=== PATIENT | male | born 1970 | race Caucasian/White ===

== ENCOUNTER 2017-10-14 15:57 | Emergency (ER) | payer SELFPAY ==
[~2017-10-14] VITALS: Ht 175.3 cm; Wt 83.0 kg
[2017-10-14 16:19] VITALS: BP 130/79; PULSE 80; RESP 17; TEMP 98.6; O2SAT 99
== END 2017-10-14 18:20 | disposition left against medical advice (07) ==
LOC: NEPK 15:57
DX: Z03.89 Encounter for observation for other suspected diseases and conditions ruled out (principal)
CPT/HCPCS: 99281